=== PATIENT | female | born 1965 | race Caucasian/White ===

== ENCOUNTER 2018-09-04 20:39 | Emergency (ER) | payer MEDICAID, OTHER ==
[~2018-09-04] VITALS: Ht 165.1 cm; Wt 74.0 kg
[2018-09-04 23:03] VITALS: BP 119/73
[2018-09-05] MEDS ORDERED: KETOROLAC 30MG/ML VIAL ONE (00:52)
== END 2018-09-05 02:10 | disposition home or self-care (01) ==
LOC: ER 20:39
DX: S30.0XXA Contusion of lower back and pelvis, initial encounter (principal); F17.200 Nicotine dependence, unspecified, uncomplicated; Z88.0 Allergy status to penicillin; W18.39XA Other fall on same level, initial encounter; Y93.89 Activity, other specified; Y92.89 Other specified places as the place of occurrence of the external cause; Y99.8 Other external cause status
CPT/HCPCS: 71045; 72100; 99284; J1885